=== PATIENT | female | born 1935 | race Caucasian/White ===

== ENCOUNTER 2016-07-23 08:43 | Emergency (ER) | END 2016-07-23 12:31 | disposition home or self-care (01) | CPT/HCPCS: 36415; 80053; 81003; 83690; 85025; 96360; 99283; 99284; A9270 ==

== ENCOUNTER 2016-10-17 08:30 | Outpatient (CLI) | payer MEDICARE, OTHER | END 2016-10-17 23:59 | disposition home or self-care (01) | DX: E03.9 Hypothyroidism, unspecified (principal) ==

== ENCOUNTER 2016-10-22 08:30 | Outpatient (CLI) | payer MEDICARE, OTHER | END 2016-10-22 23:59 | DX: E78.5 Hyperlipidemia, unspecified (principal); D64.9 Anemia, unspecified ==

== ENCOUNTER 2017-01-14 07:20 | Outpatient (CLI) | payer MEDICARE, OTHER | END 2017-01-14 07:21 | disposition home or self-care (01) | LOC: LAB.WCP 07:20 | PROVIDERS: ATTEND Physician Assistant Medical | DX: E03.9 Hypothyroidism, unspecified (principal) | CPT/HCPCS: 36415; 84443 ==

== ENCOUNTER 2017-03-27 08:57 | Outpatient (CLI) | payer MEDICARE, OTHER ==
--- NOTE | 2017-03-28 17:03 | Mammography Report ---
DIGITAL SCREENING MAMMOGRAM: 03/27/2017 CLINICAL INDICATION: An 82-year-old with history of benign biopsy for screening. COMPARISON: 01/2016, 11/2014, 09/2013, 03/2010. TECHNIQUE: Routine CC and MLO projections were obtained of the breasts. The breasts again demonstrate scattered fibroglandular densities bilaterally. Coarse and punctate, t ypically benign calcifications are present. Post-biopsy changes in the left breast are stable. No s uspicious masses, clustered microcalcifications, or regions of architectural distortion are identifie d. IMPRESSION: BENIGN FINDINGS. RECOMMENDATION: ROUTINE ANNUAL SCREENING UNLESS OTHERWISE CLINICALLY INDICATED. BIRADS CATEGORY: 2, BENIGN FINDINGS. STANDARD QUALIFYING STATEMENTS 1. This examination was reviewed with the aid of Computed-Aided Detection (CAD). 2. A negative or benign imaging report should not delay biopsy if clinically suspicious findings are present. Consider surgical consultation if warranted. More than 5% of cancers are not identified b y imaging. 3. Dense breasts may obscure an underlying neoplasm. JOB #: [id number] EXT JOB #:[id number]
== END 2017-03-27 08:58 | disposition home or self-care (01) ==
LOC: DI.N 08:57
PROVIDERS: ATTEND Physician Assistant Medical
DX: Z12.31 Encounter for screening mammogram for malignant neoplasm of breast (principal)
CPT/HCPCS: 77067

== ENCOUNTER 2017-03-29 10:36 | Outpatient (CLI) | payer MEDICARE, OTHER ==
--- NOTE | 2017-03-29 14:45 | DEXA Report ---
DEXA SCAN: 03/29/2017 CLINICAL INDICATION: Osteopenia. TECHNIQUE: Dual energy x-ray absorptiometry (DXA) was performed on a Exaprotect system. Regions measured are the AP spine, femoral neck, and, if needed, forearm. COMPARISON: 02/09/2016. In accordance with the International Society for Clinical Densitometry (ISCD) guidelines, data from previous exams may be reanalyzed using current recommendations and techniques. This is done to allow a more accurate basis for comparison with the current study. FINDINGS: The data for the lumbar spine is as follows: REGION BMD (g/cm/cm) T-SCORE Z-SCORE L1 0.811 -2.7 -0.8 L2 0.910 -2.4 -0.6 L3 1.010 -1.6 0.3 L4 1.146 -0.4 1.4 TOTAL 0.973 -1.7 0.1 NOTE: All evaluable vertebrae are used for classification. The data for the hip is as follows: REGION BMD (g/cm/cm) T-SCORE Z-SCORE Neck 0.805 -1.7 0.5 TOTAL 0.782 -1.8 0.2 NOTE: The femoral neck or total proximal femur, whichever is lowest, is used for classification. DXA RESULTS SUMMARY: Spine SCAN DATE AGE BMD T-SCORE BMD CHANGE VS BASELINE BMD CHANGE VS PREVIOUS 03/29/2017 82 1.017 --- 0.040 4.1 02/09/2016 81 0.977 --- --- --- * Denotes significant change at the 95% confidence level. Denotes dissimilar scan types or analysis methods. DXA RESULTS SUMMARY: Total hip SCAN DATE AGE BMD T-SCORE BMD CHANGE VS BASELINE BMD CHANGE VS PREVIOUS 03/29/2017 82 0.782 --- -0.032 -3.9 02/09/2016 81 0.814 * Denotes significant change at the 95% confidence level. Denotes dissimilar scan types or analysis methods. IMPRESSION: 1. THE WHO CLASSIFICATION BASED ON THE INTERNATIONAL REFERENCE STANDARD IS OSTEOPENIA. THE FRACTURE RISK IS INCREASED. 2. THERE HAS BEEN NO STATISTICALLY SIGNIFICANT INTERVAL CHANGE FROM 02/09/2016. RECOMMENDATION: Patients with diagnosis of osteoporosis or osteopenia should have regular bone mineral density assessment. For those eligible for Medicare, routine testing is allowed once every 2 years. Testing frequency can be increased for patients who have rapidly progressing disease or for those who are receiving medical therapy to restore bone mass. COMMENT: World Health Organization (WHO) definitions for osteoporosis and osteopenia: NORMAL BMD: T-score at -1.0 or higher, fracture risk is low. OSTEOPENIA BMD: T-score between -1.0 and -2.5, fracture risk is increased. OSTEOPOROSIS BMD: T-score at -2.5 or lower, fracture risk high. National Osteoporosis Foundation recommends: 1. Obtain adequate dietary calcium (at least 1200 mg per day) and vitamin D (400 -800 international units per day). 2. Participate, as appropriate, in regular weightbearing and muscle- strengthening exercise. 3. Avoid tobacco use and reduce alcohol and caffeine intake. 4. For more detailed information see the website at www.NOF.org. MTDD
== END 2017-03-29 10:37 | disposition home or self-care (01) ==
LOC: DI 10:36
PROVIDERS: ATTEND Physician Assistant Medical
DX: M85.89 Other specified disorders of bone density and structure, multiple sites (principal)
CPT/HCPCS: 77080

== ENCOUNTER 2017-10-21 23:23 | Outpatient (CLI) | payer MEDICARE, OTHER ==
[2017-10-21 12:32] LABS: BASOPHILS % (AUTO) 0.7 %; EOSINOPHILS # (AUTO) 0.3 10^3/uL (0.0-0.7); HGB - HEMOGLOBIN 11.8 g/dL (12.0-16.0); LYMPHOCYTES # (AUTO) 1.4 10^3/uL (1.5-3.5); LYMPHOCYTES % (AUTO) 22.4 %; MEAN CORPUSCULAR HEMOGLOBIN 30.2 pg (27.0-31.0); MEAN CORPUSCULAR HGB CONC 33.8 g/dL (32.0-36.0); MEAN CORPUSCULAR VOLUME 89.4 fL (81.0-99.0); MEAN PLATELET VOLUME 8.1 fL (7.9-10.8); MONOCYTES # (AUTO) 0.6 10^3/uL (0.0-1.0); MONOCYTES % (AUTO) 9.9 %; NEUTROPHILS # (AUTO) 3.8 10^3/uL (1.5-6.6); PLT - PLATELET COUNT 282 10^3/uL (130-450); RED BLOOD COUNT 3.92 10^6/uL (4.20-5.40); RED CELL DISTRIBUTION WIDTH 13.6 % (12.0-15.0); WHITE BLOOD COUNT 6.1 x10^3/uL (4.8-10.8)
[2017-10-21 12:51] LABS: BUN - BLOOD UREA NITROGEN 16 mg/dL (6-20); CARBON DIOXIDE - CO2 29 mmol/L (21-32); CHLORIDE 101 mmol/L (101-111); SODIUM 136 mmol/L (135-145)
[2017-10-21 12:52] LABS: ALBUMIN 4.1 g/dL (3.2-5.5); ALBUMIN/GLOBULIN RATIO 1.5 (1.0-2.2); ALKALINE PHOSPHATASE 57 IU/L (42-121); ALT ALANINE AMINOTRANSFERASE 17 IU/L (10-60); AST ASPARTATE AMINOTRANSFERASE 26 IU/L (10-42); BILIRUBIN,TOTAL 0.8 mg/dL (0.2-1.0); CALCIUM 9.1 mg/dL (8.5-10.3); CHOL/HDL RATIO 2.6 (<4.4); CHOLESTEROL 158 mg/dL; GFR - MDRD 53 (>89); GLUCOSE 92 mg/dL (70-100); HDL CHOLESTEROL 61 mg/dL; LDL CHOLESTEROL,CALCULATED 72 mg/dL; LDL/HDL RATIO 1.2 (<4.4); TOTAL PROTEIN 6.9 g/dL (6.7-8.2); VLDL CHOLESTEROL 25 mg/dL
[2017-10-21 12:58] LABS: THYROID STIMULATING HORMONE < 0.08 uIU/mL (0.34-5.60)
[2017-10-21 13:16] LABS: HB2 TOTAL 12.5 g/dL; HEMOGLOBIN A1C 0.44 g/dL; HEMOGLOBIN A1C % 5.4 % (4.6-6.2)
[2017-10-21 14:01] LABS: FREE T4 (FREE THYROXINE) 1.05 ng/dL (0.58-1.64)
== END 2017-10-21 23:24 | disposition home or self-care (01) ==
LOC: LAB.WCP 23:23
PROVIDERS: ATTEND Physician Assistant Medical
DX: I10 Essential (primary) hypertension (principal); R73.9 Hyperglycemia, unspecified; E78.5 Hyperlipidemia, unspecified; E03.9 Hypothyroidism, unspecified; K21.9 Gastro-esophageal reflux disease without esophagitis
CPT/HCPCS: 36415; 80053; 80061; 83036; 83721; 84439; 84443; 85025

== ENCOUNTER 2017-12-13 13:40 | Outpatient (CLI) | payer MEDICARE, OTHER ==
[2017-12-13 19:23] LABS: THYROID STIMULATING HORMONE 0.17 uIU/mL (0.34-5.60)
[2017-12-13 20:45] LABS: FREE T4 (FREE THYROXINE) 0.91 ng/dL (0.58-1.64)
== END 2017-12-13 13:41 | disposition home or self-care (01) ==
LOC: LAB.WCP 13:40
PROVIDERS: ATTEND Physician Assistant Medical
DX: E03.9 Hypothyroidism, unspecified (principal)
CPT/HCPCS: 36415; 84439; 84443

== ENCOUNTER 2018-02-01 12:53 | Outpatient (CLI) | payer MEDICARE, OTHER ==
--- NOTE | 2018-02-01 13:39 | CT Report ---
Procedure Date: 02/01/2018 Accession Number: [id number] / [id number] Procedure: CT - Head W/O CPT Code: FULL RESULT: EXAM: CT HEAD EXAM DATE: 02/01/2018 01:15 PM. CLINICAL HISTORY: ELDERLY FALL. COMPARISON: 11/13/2014. TECHNIQUE: Multiaxial CT images were obtained from the foramen magnum to the vertex. Reformats: Coronal. IV contrast: None. In accordance with CT protocol optimization, one or more of the following dose reduction techniques were utilized for this exam: automated exposure control, adjustment of mA and/or KV based on patient size, or use of iterative reconstructive technique. FINDINGS: Parenchyma: No intraparenchymal hemorrhage. No evidence of mass, midline shift, or CT findings of infarction. Solomon-white differentiation is distinct. Extraaxial Spaces: Normal for age. No subdural or epidural collections identified. Ventricles: Normal in size and position. Sinuses and Orbits: Imaged paranasal sinuses, orbits, and mastoids show no significant abnormality. Bones: No evidence of fracture or calvarial defect. Other: Mild frontal scalp soft tissue swelling. IMPRESSION: No acute intracranial abnormality. RADIA
--- NOTE | 2018-02-01 13:50 | CT Report ---
Procedure Date: 02/01/2018 Accession Number: [id number] / [id number] Procedure: CT - Orbits W/O CPT Code: FULL RESULT: EXAM: CT MAXILLOFACIAL WITHOUT CONTRAST EXAM DATE: 02/01/2018 01:15 PM. CLINICAL HISTORY: ELDERLY FALL. COMPARISONS: Accompanying CT study head, prior CT study head 11/13/2014. TECHNIQUE: Thin-section axial images were acquired of the face without contrast. Post-processing: Coronal and sagittal reformats. Other: None. In accordance with CT protocol optimization, one or more of the following dose reduction techniques were utilized for this exam: automated exposure control, adjustment of mA and/or KV based on patient size, or use of iterative reconstructive technique. Findings: Relevant images are indicated (image number, series number). Textiles Sales Representative AP, lateral view skull demonstrate no linear skull fracture. Mild anterior left ethmoidal sinus mucosal thickening. Mild outward bulging of the left nasal bone, but no discrete fracture line. Mild left maxillary sinus mucosal thickening. Remaining paranasal sinuses are clear. There is pneumatization of the anterior left clinoid process, a normal anatomical variant. Impressions: Some mild asymmetrical subcutaneous soft tissue thickening overlying the anterior left maxillary's sinus wall. Bilateral globes are symmetric with lenses intact. Patient status post bilateral lens surgery. Impressions: 1. Evidence for mild soft tissue injury overlying the left cheek, some mild outward bowing of the left nasal bone but no fracture. Orbital contents negative, otherwise no acute osseous findings. RADIA
== END 2018-02-01 12:54 | disposition home or self-care (01) ==
LOC: DI 12:53
PROVIDERS: ATTEND Physician Assistant
DX: R29.6 Repeated falls (principal)
CPT/HCPCS: 70450; 70480

== ENCOUNTER 2018-03-05 04:15 | Outpatient (CLI) | payer MEDICARE, OTHER | END 2018-03-05 04:16 | disposition critical access hospital (66) | LOC: EMS 04:15 | PROVIDERS: ATTEND Surgery | DX: R09.89 Other specified symptoms and signs involving the circulatory and respiratory systems (principal); R42 Dizziness and giddiness; R11.0 Nausea | CPT/HCPCS: A0425; A0429 ==

== ENCOUNTER 2018-03-05 04:33 | Emergency (ER) | payer MEDICARE, OTHER ==
--- NOTE | 2018-03-05 04:43 | ED Physician Documentation ---
History of Present Illness - Stated complaint Stated Complaint: COLD FEELING IN ARMS - Chief complaint Chief Complaint: Cardiac - History obtained from History obtained from: Patient - Additonal information Additional information: 83-year-old female presents to the emergency department with palpitations and general weakness. The patient awoke this morning with a racing heart and felt cold throughout her upper extremities and generally weak and nauseous. The patient denies any chest pain, dyspnea on exertion, shortness of breath or abdominal pain. The patient's symptoms have presently resolved spontaneously. No other associated symptoms. No specific triggering factors. The patient reports a history of atrial fibrillation. Review of Systems Constitutional: reports: Fatigue. denies: Fever, Chills Eyes: denies: Loss of vision Ears: denies: Loss of hearing Nose: denies: Congestion Throat: denies: Sore throat Cardiac: reports: Palpitations. denies: Chest pain / pressure Respiratory: denies: Dyspnea GI: denies: Abdominal Pain : denies: Dysuria Skin: denies: Rash Musculoskeletal: denies: Neck pain Neurologic: reports: Generalized weakness. denies: Syncope, Headache Immunocompromised: denies: Chemotherapy PD PAST MEDICAL HISTORY - Past Medical History Cardiovascular: High cholesterol, Atrial fibrillation, Hypertension Endocrine/Autoimmune: HyPOthyroidism : Kidney stones - Past Surgical History Past Surgical History: Yes General: Cholecystectomy, Appendectomy - Present Medications Home Medications: Ambulatory Orders Medication Instructions Recorded Confirmed Aspirin 81 DAILY 10/27/13 11/13/14 Atorvastatin Calcium [Lipitor] 40 DAILY 10/27/13 11/13/14 Flecainide [Tambocar] 100 mg PO Q12H 10/27/13 11/13/14 Levothyroxine Sodium [Levoxyl] 100 DAILY 10/27/13 11/13/14 Telmisartan/Hydrochlorothiazid 1 DAILY 10/27/13 11/13/14 [Micardis Hct 80-25 mg Tablet] amLODIPine [Norvasc] 5 mg PO ONCE 11/13/14 11/13/14 Omeprazole [PriLOSEC] 20 mg PO DAILY #14 capsule 03/13/15 ALPRAZolam [Alprazolam] 1 tab PO DAILY PRN 03/05/18 03/05/18 Sertraline HCl [Zoloft] 100 mg PO DAILY 03/05/18 03/05/18 - Allergies Allergies/Adverse Reactions: Allergies Allergy/AdvReac Type Severity Reaction Status Date / Time Penicillins Allergy Intermediate Rash Verified 03/05/18 04:46 - Social History Does the pt smoke?: No Smoking Status: Never smoker Does the pt drink ETOH?: Yes Does the pt have substance abuse?: No - Immunizations Immunizations are current?: No Immunizations: TDAP >10years/unknown - POLST Patient has POLST: No PD ED PE NORMAL - General General: Alert and oriented X 3, No acute distress - HEENT HEENT: Atraumatic, PERRL, EOMI, Ears normal - Neck Neck: Supple, no meningeal sign - Cardiac Cardiac: RRR, Strong equal pulses - Respiratory Respiratory: No respiratory distress, Clear bilaterally - Abdomen Abdomen: Soft, Non tender, Non distended - Derm Derm: Normal color - Extremities Extremities: No deformity, No edema - Neuro Neuro: Alert and oriented X 3, Normal speech - Psych Psych: Normal mood Results - Vitals Vitals: Vital Signs - 24 hr 03/05/18 03/05/18 03/05/18 04:35 05:23 05:48 Temperature 36.2 C L Heart Rate 77 72 71 Respiratory 18 16 20 Rate Blood Pressure 156/81 H 132/68 H 118/55 L Blood Pressure 135/56 H [Left] Blood Pressure 159/61 H [Right] O2 Saturation 96 94 96 Oxygen O2 Source Room air - EKG (time done) 04:27 Rate: Rate (enter#) Rhythm: NSR Intervals: Normal TN, QRS normal Ischemia: Non specific changes Compare to prior EKG: Unchanged from prior EKG - Labs Labs: Laboratory Tests 03/05/18 03/05/18 03/05/18 04:50 04:50 04:50 WBC 5.8 RBC 4.15 L Hgb 12.3 Hct 36.9 L MCV 88.9 MCH 29.7 MCHC 33.4 RDW 14.1 Plt Count 272 MPV 7.9 Neut # (Auto) 2.9 Lymph # (Auto) 1.9 [place] # (Auto) 0.6 Eos # (Auto) 0.4 Baso # (Auto) 0.0 Absolute Nucleated RBC 0.00 Nucleated RBC % 0.0 Sodium 136 Potassium 3.2 L Chloride 99 L Carbon Dioxide 27 Anion Gap 10.0 BUN 17 Creatinine 1.2 H Estimated GFR (MDRD) 43 L Glucose 111 H Calcium 9.4 Total Bilirubin 0.8 AST 34 ALT 21 Alkaline Phosphatase 71 Total Creatine Kinase 195 Troponin I < 0.04 Total Protein 7.0 Albumin 4.0 Globulin 3.0 Albumin/Globulin Ratio 1.3 Lipase 38 Urine Color Urine Clarity Urine pH Ur Specific [place] Urine Protein Urine Glucose (UA) Urine Ketones Urine Occult Blood Urine Nitrite Urine Bilirubin Urine Urobilinogen Ur Leukocyte Esterase Ur Microscopic Review Urine Culture Comments 03/05/18 04:56 WBC RBC Hgb Hct MCV MCH MCHC RDW Plt Count MPV Neut # (Auto) Lymph # (Auto) [place] # (Auto) Eos # (Auto) Baso # (Auto) Absolute Nucleated RBC Nucleated RBC % Sodium Potassium Chloride Carbon Dioxide Anion Gap BUN Creatinine Estimated GFR (MDRD) Glucose Calcium Total Bilirubin AST ALT Alkaline Phosphatase Total Creatine Kinase Troponin I Total Protein Albumin Globulin Albumin/Globulin Ratio Lipase Urine Color YELLOW Urine Clarity CLEAR Urine pH 6.0 Ur Specific [place] 1.025 Urine Protein NEGATIVE Urine Glucose (UA) NEGATIVE Urine Ketones NEGATIVE Urine Occult Blood TRACE-LYSE Urine Nitrite NEGATIVE Urine Bilirubin NEGATIVE Urine Urobilinogen 0.2 (NORMAL) Ur Leukocyte Esterase NEGATIVE Ur Microscopic Review NOT INDICATED Urine Culture Comments NOT INDICATED - Rads (name of study) CXR Radiology: Final report received PD MEDICAL DECISION MAKING - ED course ED course: The patient's workup does not reveal any significant abnormality that would necessitate admission to the hospital. The patient palpitations have resolved. The patient appears appropriate at this time for discharge home and ongoing outpatient management. 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 The patient agrees and understands. I discussed warning signs and recommended returning to the emergency department immediately for worsening or any concerns - Sepsis Event Vital Signs: Vital Signs - 24 hr 03/05/18 03/05/18 03/05/18 04:35 05:23 05:48 Temperature 36.2 C L Heart Rate 77 72 71 Respiratory 18 16 20 Rate Blood Pressure 156/81 H 132/68 H 118/55 L Blood Pressure 135/56 H [Left] Blood Pressure 159/61 H [Right] O2 Saturation 96 94 96 Oxygen O2 Source Room air Departure - Departure Disposition: 01 Home, Self Care Clinical Impression: Dizziness, Weakness, Hypokalemia Condition: Good Instructions: ED Palpitations
[2018-03-05 05:00] LABS: BASOPHILS % (AUTO) 0.7 %; EOSINOPHILS # (AUTO) 0.4 10^3/uL (0.0-0.7); EOSINOPHILS % (AUTO) 7.3 %; HGB - HEMOGLOBIN 12.3 g/dL (12.0-16.0); LYMPHOCYTES # (AUTO) 1.9 10^3/uL (1.5-3.5); LYMPHOCYTES % (AUTO) 32.8 %; MEAN CORPUSCULAR HEMOGLOBIN 29.7 pg (27.0-31.0); MEAN CORPUSCULAR HGB CONC 33.4 g/dL (32.0-36.0); MEAN CORPUSCULAR VOLUME 88.9 fL (81.0-99.0); MEAN PLATELET VOLUME 7.9 fL (7.9-10.8); MONOCYTES # (AUTO) 0.6 10^3/uL (0.0-1.0); MONOCYTES % (AUTO) 9.9 %; NEUTROPHILS # (AUTO) 2.9 10^3/uL (1.5-6.6); NEUTROPHILS % (AUTO) 49.3 %; PLT - PLATELET COUNT 272 10^3/uL (130-450); RED BLOOD COUNT 4.15 10^6/uL (4.20-5.40); RED CELL DISTRIBUTION WIDTH 14.1 % (12.0-15.0); WHITE BLOOD COUNT 5.8 x10^3/uL (4.8-10.8)
[2018-03-05 05:07] LABS: BILIRUBIN,URINE NEGATIVE (NEGATIVE); GLUCOSE, URINE (UA) NEGATIVE (NEGATIVE); KETONES,URINE (UA) NEGATIVE (NEGATIVE); LEUKOCYTE ESTERASE, URINE NEGATIVE (NEGATIVE); NITRITE,URINE NEGATIVE (NEGATIVE); OCCULT BLOOD,URINE TRACE-LYSE (NEGATIVE); PROTEIN,URINE NEGATIVE (NEGATIVE); UROBILINOGEN,URINE 0.2 (NORMAL) E.U./dL (NORMAL)
[2018-03-05 05:15] LABS: ALBUMIN/GLOBULIN RATIO 1.3 (1.0-2.2); BILIRUBIN,TOTAL 0.8 mg/dL (0.2-1.0); CALCIUM 9.4 mg/dL (8.5-10.3); CREATININE 1.2 mg/dL (0.4-1.0)
[2018-03-05 05:16] LABS: CLARITY,URINE CLEAR (CLEAR)
--- NOTE | 2018-03-05 05:18 | XRAY Report ---
Procedure Date: 03/05/2018 Accession Number: [id number] / [id number] Procedure: XR - Chest 2 View X-Ray CPT Code: 15358 FULL RESULT: EXAM: CHEST RADIOGRAPHY EXAM DATE: 03/05/2018 05:07 AM. CLINICAL HISTORY: Palpitations. COMPARISON: CHEST 2 VIEW PA/LAT 01/25/2014. TECHNIQUE: 2 views. FINDINGS: Lungs/Pleura: No focal opacities evident. No pleural effusion. No pneumothorax. Normal volumes. Mediastinum: No cardiomegaly. Stable hiatal hernia. Atherosclerotic calcifications of the aortic arch. Other: None. IMPRESSION: Stable hiatal hernia. No evidence of acute cardiopulmonary disease. RADIA
[2018-03-05] MEDS ORDERED: POTASSIUM CHLORIDE 20 MEQ TABLET PO STA (05:45)
[2018-03-05 05:49] VITALS: BP 118/55
== END 2018-03-05 06:05 | disposition home or self-care (01) ==
LOC: EDBD → EDUNIT# → ED 04:33 → SUPCPDRO 04:33 → ED 06:05
DX: R42 Dizziness and giddiness (principal); R53.1 Weakness; E87.6 Hypokalemia; I48.91 Unspecified atrial fibrillation; I10 Essential (primary) hypertension
CPT/HCPCS: 36415; 71046; 80053; 81003; 82550; 83690; 84484; 85025; 93005; 99284; A9270; 81001; 87086

== ENCOUNTER 2018-03-11 15:35 | Outpatient (CLI) | payer MEDICARE, OTHER ==
[2018-03-11 19:01] LABS: CALCIUM 9.2 mg/dL (8.5-10.3); CREATININE 1.1 mg/dL (0.4-1.0)
== END 2018-03-11 15:36 | disposition home or self-care (01) ==
LOC: LAB.WCP 15:35
PROVIDERS: ATTEND Physician Assistant Medical
DX: I48.0 Paroxysmal atrial fibrillation (principal)
CPT/HCPCS: 36415; 80048

== ENCOUNTER 2018-03-21 10:35 | Outpatient (CLI) | payer MEDICARE, OTHER ==
[2018-03-21] MEDS ORDERED: GADOBUTROL 7.5 MMOL/7.5 ML VIAL ONE (12:15)
[2018-03-21] MEDS ORDERED: GADOBUTROL 7.5 MMOL/7.5 ML VIAL IVP ONE ×2 (12:34)
--- NOTE | 2018-03-21 13:01 | Ultrasound Report ---
Reason: ATRIAL FIBRILATION, PAROXYSMAL, MUSCEL WEAKNESS Procedure Date: 03/21/2018 Accession Number: [id number] / [id number] Procedure: US - Carotid Doppler Complete CPT Code: FULL RESULT: EXAM: BILATERAL CAROTID AND VERTEBRAL ARTERY DUPLEX DOPPLER ULTRASOUND: EXAM DATE: 03/21/2018 11:14 AM CLINICAL HISTORY: Atrial fibrillation, paroxysmal, muscle weakness. COMPARISON: 03/21/2018 11:24 AM. TECHNIQUE: Grayscale imaging, color Doppler, and duplex spectral Doppler were used to evaluate the carotid and vertebral arteries bilaterally. Static images were obtained. FINDINGS: No significant plaque is identified in the right or left common or internal carotid arteries. Normal antegrade flow is present in bilateral vertebral arteries. VELOCITIES (cm/sec): VELOCITIES: Right CCA mid: PSV 92 cm/sec CCA dist: PSV 80 cm/sec ICA prox: PSV 67 cm/sec, EDV 16 cm/sec ICA mid: PSV 103 cm/sec, EDV 25 cm/sec ICA dist: PSV 104 cm/sec, EDV 35 cm/sec ECA: PSV 145 cm/sec Vert: PSV 38 cm/sec ICA/CCA: 1.30 Left CCA mid: PSV 74 cm/sec CCA dist: PSV 69 cm/sec ICA prox: PSV 69 cm/sec, EDV 23 cm/sec ICA mid: PSV 85 cm/sec, EDV 28 cm/sec ICA dist: PSV 98 cm/sec, EDV 35 cm/sec ECA: PSV 75 cm/sec Vert: PSV 37 cm/sec ICA/CCA: 1.42 ICA diameter stenosis: Right: <50% by velocity and <70% by NASCET criteria. Left: <50% by velocity and <70% by NASCET criteria. IMPRESSION: 1. No significant bilateral carotid artery plaquing. 2. In the right carotid artery there are no elevated carotid artery velocities to suggest hemodynamically significant stenosis. 3. In the left carotid artery there are no elevated carotid artery velocities to suggest hemodynamically significant stenosis. 4. Normal antegrade flow is present in bilateral vertebral arteries. General Recommendations: Stenosis =50% ICA - Follow-up ultrasound 6-12 months Stenosis <50% ICA - High Risk Patient with plaque - Follow-up ultrasound 1-2 years Normal Study but High Risk Patient - Follow-up ultrasound 3-5 years Management recommendations and diagnostic criteria are based on current IAC endorsed standards in Carotid Artery Stenosis: Grayscale and Doppler Ultrasound Diagnosis. Validated velocity measurements with angiographic measurements and velocity criteria are extrapolated from diameter data as defined by the Society of Radiologists in Ultrasound Consensus Conference Radiology 2003; 229;340-346. RADIA
--- NOTE | 2018-03-23 16:30 | MRI Report ---
Reason: ATRIAL FIBRILLATION,PAROXYSMAL, MUSCLE WEAKNESS Procedure Date: 03/21/2018 Accession Number: [id number] / [id number] Procedure: MRI - Brain W/WO CPT Code: FULL RESULT: EXAM: MRI BRAIN WITH AND WITHOUT CONTRAST. COMPARISON: CT head, 02/01/2018. CLINICAL HISTORY: Atrial fibrillation, paroxysmal, muscle weakness. TECHNIQUE: Multiplanar multisequence imaging is performed through the head with and without gadolinium based contrast 6.5 cc Gadavist. FINDINGS: Diffusion weighted imaging shows no acute infarct. Gradient sequence shows no evident prior parenchymal hemorrhage. T2 FLAIR imaging shows a few small scattered foci of elevated signal, appearance and distribution is nonspecific. T2 spin-echo imaging shows no posterior fossa masses. No calvarial signal abnormality. Visualized orbits, paranasal sinuses and mastoids are unremarkable. Pituitary fossa, clivus and foramen magnum are unremarkable. No abnormal elevated T1 signal in the brain parenchyma. Postcontrast T1 imaging shows no abnormal parenchymal enhancement. No masses. IMPRESSION: No acute infarct, masses, or other discrete acute intracranial process identified. There are findings concordant with volume loss, and at least mild small vessel angiopathy.
== END 2018-03-21 10:36 | disposition home or self-care (01) ==
LOC: DI 10:35
PROVIDERS: ATTEND Physician Assistant Medical
DX: I48.0 Paroxysmal atrial fibrillation (principal); M62.81 Muscle weakness (generalized)
CPT/HCPCS: 70553; 93306; 93880; A9585

== ENCOUNTER 2018-06-05 07:31 | Outpatient (CLI) | payer MEDICARE, OTHER ==
[2018-06-05 14:16] LABS: ALBUMIN 4.3 g/dL (3.2-5.5); ALBUMIN/GLOBULIN RATIO 1.5 (1.0-2.2); ALKALINE PHOSPHATASE 96 IU/L (42-121); ALT ALANINE AMINOTRANSFERASE 19 IU/L (10-60); AST ASPARTATE AMINOTRANSFERASE 27 IU/L (10-42); BILIRUBIN,TOTAL 0.8 mg/dL (0.2-1.0); BUN - BLOOD UREA NITROGEN 24 mg/dL (6-20); CALCIUM 9.5 mg/dL (8.5-10.3); CARBON DIOXIDE - CO2 29 mmol/L (21-32); CHLORIDE 98 mmol/L (101-111); CHOL/HDL RATIO 3.2 (<4.4); CHOLESTEROL 177 mg/dL; GFR - MDRD 53 (>89); GLUCOSE 99 mg/dL (70-100); HDL CHOLESTEROL 56 mg/dL; LDL CHOLESTEROL,CALCULATED 94 mg/dL; LDL/HDL RATIO 1.7 (<4.4); SODIUM 136 mmol/L (135-145); TOTAL PROTEIN 7.2 g/dL (6.7-8.2); VLDL CHOLESTEROL 27 mg/dL
== END 2018-06-05 07:32 ==
LOC: LAB.WCP 07:31
PROVIDERS: ATTEND Physician Assistant Medical
DX: E78.5 Hyperlipidemia, unspecified (principal)
CPT/HCPCS: 36415; 80053; 80061; 83721

== ENCOUNTER 2019-01-29 08:00 | Outpatient (CLI) | payer MEDICARE, OTHER ==
[2019-01-29 13:12] LABS: CALCIUM 9.6 mg/dL (8.5-10.3)
== END 2019-01-29 23:59 | disposition home or self-care (01) ==
LOC: LAB.WCP 08:00
PROVIDERS: ATTEND Physician Assistant Medical
DX: E87.6 Hypokalemia (principal); E55.9 Vitamin D deficiency, unspecified
CPT/HCPCS: 36415; 80048; 82306

== ENCOUNTER 2019-05-29 06:52 | Emergency (ER) | payer MEDICARE, OTHER ==
--- NOTE | 2019-05-29 07:15 | ED Physician Documentation ---
PD HPI FEMALE - Stated complaint Stated Complaint: FEMALE - History obtained from History obtained from: Patient - History of Present Illness Timing - onset: Yesterday Timing - duration: Hours (9) Timing - details: Abrupt onset Pain level max: 0 Associated symptoms: Urinary frequency, Hematuria. No: Fever, Abdominal pain, Back pain, Pelvic pain Recently seen: Not recently seen - Additional information Additional information: This is an 84-year-old woman who presents with her complaints at about 1030 last night she started going to the bathroom more frequently there is just a little bit of "stinging" during the urination and she feels a lot of vaginal pressure. This morning she peed and it was bright red blood. She denies back pain although she feels a little bit shaky she has not documented any fevers. She felt a little queasy and nauseous on the ride here from home but has not vomited. She does have a history of urinary tract infections including ones that have presented with blood in the urine. Her last UTI was about 2 years ago. She does not have a urologist. She has a history of high blood pressure and A. fib they have just changed her to diltiazem from flecainide because they were concerned it was causing her some hives. She has high cholesterol and is hypothyroid on thyroid replacement. Review of Systems Constitutional: reports: Chills. denies: Fever GI: reports: Nausea. denies: Abdominal Pain, Vomiting : reports: Dysuria, Frequency, Hematuria Musculoskeletal: denies: Back pain PD PAST MEDICAL HISTORY - Past Medical History Cardiovascular: High cholesterol, Atrial fibrillation, Hypertension Endocrine/Autoimmune: HyPOthyroidism : Kidney stones Psych: Depression, Anxiety - Past Surgical History Past Surgical History: Yes General: Cholecystectomy, Appendectomy - Present Medications Home Medications: Ambulatory Orders Medication Instructions Recorded Confirmed Aspirin 81 DAILY 10/27/13 11/13/14 Atorvastatin Calcium [Lipitor] 40 DAILY 10/27/13 11/13/14 Levothyroxine Sodium [Levoxyl] 100 DAILY 10/27/13 11/13/14 Telmisartan/Hydrochlorothiazid 1 DAILY 10/27/13 11/13/14 [Micardis Hct 80-25 mg Tablet] ALPRAZolam [Alprazolam] 1 tab PO PRN PRN 03/05/18 03/05/18 Sertraline HCl [Zoloft] 100 mg PO DAILY 03/05/18 03/05/18 Cholecalciferol (Vitamin D3) 1,000 unit PO 05/29/19 [Vitamin D3] Diltiazem HCl [Diltiazem ER] 180 mg PO 05/29/19 Phenazopyridine HCl [Pyridium] 100 mg PO TID #6 tablet 05/29/19 Potassium Chloride 10 meq PO 05/29/19 Sulfamethox/Trimeth 800/160 1 each PO BID #20 tablet 05/29/19 [Bactrim Ds 800/160] - Allergies Allergies/Adverse Reactions: Allergies Allergy/AdvReac Type Severity Reaction Status Date / Time Penicillins Allergy Intermediate Rash Verified 03/05/18 04:46 - Social History Does the pt smoke?: No Smoking Status: Never smoker Does the pt drink ETOH?: Yes Does the pt have substance abuse?: No - Immunizations Immunizations are current?: No Immunizations: TDAP >10years/unknown - POLST Patient has POLST: No PD ED PE NORMAL - Vitals Vital signs reviewed: Yes - General General: Alert and oriented X 3, No acute distress, Well developed/nourished - HEENT HEENT: Atraumatic, PERRL, Moist mucous membranes - Cardiac Cardiac: RRR, Strong equal pulses. No: No murmur (There is a soft 1/6 systolic murmur heard at the left and right upper sternal border) - Respiratory Respiratory: No respiratory distress, Clear bilaterally - Abdomen Abdomen: Normal bowel sounds, Soft, Non tender, Non distended, No organomegaly - Back Back: No CVA TTP - Derm Derm: Normal color, Warm and dry, No rash - Extremities Extremities: No edema - Neuro Neuro: Alert and oriented X 3, No motor deficit, No sensory deficit, Normal speech - Psych Psych: Normal mood, Normal affect Results - Vitals Vitals: Vital Signs - 24 hr 05/29/19 05/29/19 06:58 07:00 Temperature 36.8 C Heart Rate 90 71 Respiratory 18 16 Rate Blood Pressure 159/61 H 143/64 H O2 Saturation 97 99 Oxygen O2 Source Room air - Labs Labs: Laboratory Tests 05/29/19 06:55 Urine Color RED/BLOODY Urine Clarity CLOUDY Urine pH 7.0 Ur Specific [place] 1.025 Urine Protein IRONWORKER Urine Glucose (UA) NEGATIVE Urine Ketones NEGATIVE Urine Occult Blood LARGE H Urine Nitrite IRONWORKER Urine Bilirubin NEGATIVE Urine Urobilinogen 1 (NORMAL) Ur Leukocyte Esterase IRONWORKER Urine RBC TNTC H Urine WBC 6-10 H Ur Squamous Epith Cells RARE Squamous Urine Bacteria Moderate H Ur Microscopic Review INDICATED Urine Culture Comments INDICATED PD MEDICAL DECISION MAKING - ED course Complexity details: reviewed results, d/w patient, d/w family ED course: Patient does have a urinary tract infection with hematuria. The urine has been cultured. Started her on Bactrim and only 3 days of Pyridium are provided. She is instructed to decrease her potassium supplementation while taking the Bactrim. She was curious about cranberry juice which I think is fine to drink during this time. High-dose vitamin C may also help eliminate the bacteria. Recheck the urine with her primary care provider and follow-up if worsening Departure - Departure Disposition: Home, Self Care Clinical Impression: UTI (urinary tract infection) Qualifiers: Urinary tract infection type: acute cystitis Hematuria presence: with hematuria Qualified Code(s): N30.01 - Acute cystitis with hematuria Condition: Good Instructions: ED UTI Cystitis Female Follow-Up: Sweta Berrios PA-C [Primary Care Provider] - Prescriptions: Phenazopyridine HCl [Pyridium] 100 mg PO TID #6 tablet Sulfamethox/Trimeth 800/160 [Bactrim Ds 800/160] 1 each PO BID #20 tablet Comments: Take the Bactrim twice a day as prescribed for 10 days. May take the Pyridium if you are having a lot of discomfort but only use it as needed up to 3 times a day. It will turn your urine very bright orange. Drink lots of water at least ten 8 ounce glasses of water a day to keep the kidneys flushed through. Bactrim can elevate your potassium levels so I would recommend taking your potassium supplement only every other day while taking the antibiotic. Cranberry juice is fine to drink. High-dose vitamin C 500 mg 3 times a day can also help to acidify the urine and clear the infection. Do not take this if it upsets your stomach. Follow-up with your primary care provider to retest the urine after he finished the antibiotics or sooner if you have increasing pain, develop back pain or fever, or vomiting and cannot keep anything down or other problems arise.
[2019-05-29 07:26] LABS: CLARITY,URINE CLOUDY (CLEAR); GLUCOSE, URINE (UA) NEGATIVE (NEGATIVE); KETONES,URINE (UA) NEGATIVE (NEGATIVE); OCCULT BLOOD,URINE LARGE (NEGATIVE); UROBILINOGEN,URINE 1 (NORMAL) E.U./dL (NORMAL)
[2019-05-29 07:28] LABS: BILIRUBIN,URINE NEGATIVE (NEGATIVE); ICTOTEST,URINE NEGATIVE
[2019-05-29 07:31] VITALS: BP 143/64
[2019-05-29 07:36] LABS: RBC,URINE TNTC /HPF (0-5); SQUAMOUS EPITHELIAL CELL,UR RARE Squamous (<= Few)
[2019-05-29 07:37] LABS: BACTERIA,URINE Moderate /HPF (None Seen)
[2019-05-29] MEDS ORDERED: SULFAMETH/TRIMETH DS 800/160 MG TABLET PO STA (07:56)
[2019-05-29] MEDS ORDERED: PHENAZOPYRIDINE 100 MG TABLET PO STA (07:57)
== END 2019-05-29 08:19 | disposition home or self-care (01) ==
LOC: ED 06:52
DX: N30.01 Acute cystitis with hematuria (principal); R01.1 Cardiac murmur, unspecified; I48.91 Unspecified atrial fibrillation; I10 Essential (primary) hypertension; E78.00 Pure hypercholesterolemia, unspecified; E03.9 Hypothyroidism, unspecified; Z79.82 Long term (current) use of aspirin; Z88.0 Allergy status to penicillin
CPT/HCPCS: 81001; 87086; 87181; 99283; 99284; A9270; 81003

== ENCOUNTER 2019-06-09 06:20 | Outpatient (CLI) | payer MEDICARE, OTHER | END 2019-06-09 06:21 | disposition critical access hospital (66) | LOC: EMS 06:20 | PROVIDERS: ATTEND Surgery | DX: R53.1 Weakness (principal); R11.0 Nausea | CPT/HCPCS: A0425; A0429 ==

== ENCOUNTER 2019-06-09 06:42 | Emergency (ER) | payer MEDICARE, OTHER ==
--- NOTE | 2019-06-09 07:08 | ED Physician Documentation ---
PD HPI ABD PAIN - Stated complaint Stated Complaint: DIZZY - Chief complaint Chief Complaint: Abd Pain - History obtained from History obtained from: Patient - History of Present Illness Timing - onset: How many hours ago (2-3), Today Timing - duration: Minutes Timing - details: Abrupt onset (She had onset this morning of feeling of nausea without vomiting. She did feel some discomfort in her mid upper abdomen. Over several minutes she noted a feeling of sweatiness and did have some lightheadedness with it. She denied any syncope per se. She went in sat down and rested and felt improved. Still with some upper abdominal crampy pain. She is able to stand up at that point and did not feel lightheaded anymore. The abdominal pain improved as well over several minutes. She denied any chest pain or dyspnea.). No: Still present Quality: Cramping, Aching Location: Epigastric. No: RUQ Radiation: No: Lower back, Upper back Improved by: Other (felt better sitting down and rested few minutes) Worsened by: No: Eating Associated symptoms: Near syncope / syncope. No: Fever, Nausea, Diarrhea, Constipation, Melena, Chest pain, Loss of appetite Recently seen: Clinic (She was seen last week by her primary care due to continued depression symptoms. She had her Zoloft increased from 1 to 1-1/2 tablets daily. She has been doing that for about 4 or 5 days now.), Emergency Dept (11 or 12 days ago seen in the ER for dysuria and prescribed Bactrim for 10 days. Her dysuria improved over a few days and she completed the antibiotic course 2 days ago without problems. She felt okay during that time.), Other (She was last seen by her diesel mechanic about 3 months ago and had her antiarrhythmic changed from flecainide to something else and has been doing okay with that. She has not had episodes of A. fib recently.) Review of Systems Constitutional: denies: Fever, Chills, Myalgias Throat: denies: Sore throat Cardiac: denies: Chest pain / pressure, Palpitations, Pedal edema, Calf pain Respiratory: denies: Dyspnea, Cough GI: reports: Abdominal Pain, Nausea. denies: Vomiting, Constipation, Diarrhea, Bloody / black stool : denies: Dysuria, Frequency Neurologic: reports: Near syncope. denies: Focal weakness, Numbness, Syncope, Altered mental status PD PAST MEDICAL HISTORY - Past Medical History Cardiovascular: High cholesterol, Atrial fibrillation, Hypertension Endocrine/Autoimmune: HyPOthyroidism : Kidney stones Psych: Depression, Anxiety - Past Surgical History Past Surgical History: Yes General: Cholecystectomy, Appendectomy - Present Medications Home Medications: Ambulatory Orders Medication Instructions Recorded Confirmed Aspirin 81 DAILY 10/27/13 11/13/14 Atorvastatin Calcium [Lipitor] 40 DAILY 10/27/13 11/13/14 Levothyroxine Sodium [Levoxyl] 100 DAILY 10/27/13 11/13/14 Telmisartan/Hydrochlorothiazid 1 DAILY 10/27/13 11/13/14 [Micardis Hct 80-25 mg Tablet] ALPRAZolam [Alprazolam] 1 tab PO PRN PRN 03/05/18 03/05/18 Sertraline HCl [Zoloft] 100 mg PO DAILY 03/05/18 03/05/18 Cholecalciferol (Vitamin D3) 1,000 unit PO 05/29/19 [Vitamin D3] Diltiazem HCl [Diltiazem ER] 180 mg PO 05/29/19 Phenazopyridine HCl [Pyridium] 100 mg PO TID #6 tablet 05/29/19 Potassium Chloride 10 meq PO 05/29/19 Sulfamethox/Trimeth 800/160 1 each PO BID #20 tablet 05/29/19 [Bactrim Ds 800/160] - Allergies Allergies/Adverse Reactions: Allergies Allergy/AdvReac Type Severity Reaction Status Date / Time Penicillins Allergy Intermediate Rash Verified 03/05/18 04:46 - Social History Does the pt smoke?: No Smoking Status: Never smoker Does the pt drink ETOH?: Yes Does the pt have substance abuse?: No - Immunizations Immunizations are current?: No Immunizations: TDAP >10years/unknown - POLST Patient has POLST: No PD ED PE NORMAL - Vitals Vital signs reviewed: Yes - General General: Alert and oriented X 3, No acute distress, Well developed/nourished - HEENT HEENT: Moist mucous membranes, Pharynx benign - Neck Neck: Supple, no meningeal sign, No adenopathy - Cardiac Cardiac: RRR, No murmur - Respiratory Respiratory: Clear bilaterally - Abdomen Abdomen: Normal bowel sounds, Soft, Non tender, Non distended, No organomegaly - Female Female : Deferred - Rectal Rectal: Deferred - Back Back: No CVA TTP - Derm Derm: Normal color, Warm and dry - Extremities Extremities: No tenderness to palpate, Normal ROM s pain, No edema, No calf tenderness / cord - Neuro Neuro: Alert and oriented X 3, No motor deficit, No sensory deficit, Normal speech Eye Opening: Spontaneous Motor: Obeys Commands Verbal: Oriented GCS Score: 15 - Psych Psych: Normal mood Results - Vitals Vitals: Vital Signs - 24 hr 06/09/19 06/09/19 06/09/19 06:44 07:38 09:36 Temperature 36.6 C Heart Rate 66 72 Heart Rate [ 69 Sitting] Heart Rate [ 76 Standing] Heart Rate [ 67 Supine] Respiratory 15 18 Rate Blood Pressure 128/56 L 107/79 Blood Pressure 124/60 [Sitting] Blood Pressure 101/58 L [Standing] Blood Pressure 122/63 [Supine] O2 Saturation 96 96 Oxygen O2 Source Room air - Labs Labs: Laboratory Tests 06/09/19 06/09/19 06/09/19 07:00 07:00 07:00 WBC 5.7 RBC 4.03 L Hgb 11.9 L Hct 36.7 L MCV 91.1 MCH 29.5 MCHC 32.4 RDW 12.7 Plt Count 313 MPV 9.6 Neut # (Auto) 3.0 Lymph # (Auto) 1.8 Upson # (Auto) 0.6 Eos # (Auto) 0.2 Baso # (Auto) 0.0 Absolute Nucleated RBC 0.00 Nucleated RBC % 0.0 Sodium 131 L Potassium 3.6 Chloride 95 L Carbon Dioxide 27 Anion Gap 9.0 BUN 20 Creatinine 1.2 H Estimated GFR (MDRD) 43 L Glucose 134 H Calcium 9.5 Total Bilirubin Direct Bilirubin AST ALT Alkaline Phosphatase Troponin I High Sens < 2.3 L Total Protein Albumin Globulin 06/09/19 07:00 WBC RBC Hgb Hct MCV MCH MCHC RDW Plt Count MPV Neut # (Auto) Lymph # (Auto) Upson # (Auto) Eos # (Auto) Baso # (Auto) Absolute Nucleated RBC Nucleated RBC % Sodium Potassium Chloride Carbon Dioxide Anion Gap BUN Creatinine Estimated GFR (MDRD) Glucose Calcium Total Bilirubin 0.7 Direct Bilirubin 0.1 AST 28 ALT 19 Alkaline Phosphatase 72 Troponin I High Sens Total Protein 7.4 Albumin 4.4 Globulin 3.0 PD MEDICAL DECISION MAKING - ED course Complexity details: reviewed results, re-evaluated patient (She states she is feeling better here. We did do orthostatics which showed a drop in her blood pressure but she did not have any near-syncope symptoms again. I do not have a obvious explanation for this right now. Recent medications were an antibiotic that she is finished now. She does not look septic. She is not had any melena nor bloody stools. Her antiarrhythmic medicine was changed about 3 months ago so I would not anticipate a problem now unless her recent antibiotic of the Bactrim had caused decreased clearance of it. Her EKG appears normal however without any blocks or conduction abnormalities. She has not had a change in her blood pressure medicine. She had changed her antidepressants but looking in the pucker tease, lightheadedness her blood pressure changes is not listed as a common side effect. At this point I would have her hold her blood pressure medicine for couple of days and check her pressure. See if she returns to normal. Watch for other symptoms to develop.), considered differential (Consider cardiovascular causes. She had nausea with upper abdominal pain. Her lightheadedness may have been vasovagal. Will check blood pressure and heart rate. Will check blood tests EKG and troponin.), d/w patient Departure - Departure Disposition: 01 Home, Self Care Clinical Impression: Orthostatic lightheadedness, Near syncope Condition: Stable Record reviewed to determine appropriate education?: Yes Instructions: ED Near Syncope Unkn Comments: Hold your blood pressure medicine this morning. See how your blood pressure is tomorrow and the next day and if it is relatively low, then hold your blood pressure medicine still. Stay well hydrated. This might be a side effect of the increased dose of your Zoloft, though not one listed as common/usual side effect. That should improve after a few days to a week of being on it. Your blood tests otherwise are good without any signs of being heart related and your electrolytes and kidney function are good. Follow-up with your primary care if he has not gotten back to normal feeling and blood pressure over the next few days.
[2019-06-09 07:24] LABS: BASOPHILS % (AUTO) 0.7 %; EOSINOPHILS # (AUTO) 0.2 10^3/uL (0.0-0.7); EOSINOPHILS % (AUTO) 3.2 %; HGB - HEMOGLOBIN 11.9 g/dL (12.0-16.0); LYMPHOCYTES # (AUTO) 1.8 10^3/uL (1.5-3.5); LYMPHOCYTES % (AUTO) 31.6 %; MEAN CORPUSCULAR HEMOGLOBIN 29.5 pg (27.0-31.0); MEAN CORPUSCULAR HGB CONC 32.4 g/dL (32.0-36.0); MEAN CORPUSCULAR VOLUME 91.1 fL (81.0-99.0); MEAN PLATELET VOLUME 9.6 fL (7.9-10.8); MONOCYTES # (AUTO) 0.6 10^3/uL (0.0-1.0); MONOCYTES % (AUTO) 10.4 %; PLT - PLATELET COUNT 313 10^3/uL (130-450); RED BLOOD COUNT 4.03 10^6/uL (4.20-5.40); RED CELL DISTRIBUTION WIDTH 12.7 % (12.0-15.0); WHITE BLOOD COUNT 5.7 x10^3/uL (4.8-10.8)
[2019-06-09 07:25] LABS: CALCIUM 9.5 mg/dL (8.5-10.3); CREATININE 1.2 mg/dL (0.4-1.0)
--- NOTE | 2019-06-09 07:37 | XRAY Report ---
Reason: dizzy, weak Procedure Date: 06/09/2019 Accession Number: [id number] / [id number] Procedure: XR - Chest 1 View X-Ray CPT Code: 39644 Final Report FULL RESULT: EXAM: CHEST RADIOGRAPHY EXAM DATE: 06/09/2019 06:56 AM. CLINICAL HISTORY: Dizzy, weak. COMPARISON: CHEST 2 VIEW 03/05/2018 4:40 AM CHEST 2 VIEW PA/LAT 01/25/2014 2:04 AM. TECHNIQUE: 1 view. FINDINGS: Lungs/Pleura: No focal opacities evident. No pleural effusion. No pneumothorax. Mediastinum: Within exam limitations, the cardiac contour is normal. There is mild atherosclerotic calcification of the aortic arch. A large hiatal hernia is present, similar to prior chest radiographs. Other: No acute osseous abnormality. There are degenerative changes of the right glenohumeral joint. IMPRESSION: 1. Stable appearance of large hiatal hernia. 2. No acute cardiopulmonary abnormality. RADIA
[2019-06-09 07:53] LABS: ALBUMIN 4.4 g/dL (3.2-5.5); BILIRUBIN,DIRECT 0.1 mg/dL (0.1-0.5); BILIRUBIN,TOTAL 0.7 mg/dL (0.2-1.0); TOTAL PROTEIN 7.4 g/dL (6.7-8.2)
[2019-06-09] MEDS ORDERED: SODIUM CHLORIDE 0.9% 1,000 ML IV ONE (09:53)
[2019-06-09 11:25] VITALS: BP 121/50
== END 2019-06-09 11:30 | disposition home or self-care (01) ==
LOC: EDUNIT# → ED 06:42
DX: I95.1 Orthostatic hypotension (principal); R10.13 Epigastric pain; R11.0 Nausea; I10 Essential (primary) hypertension; Z79.82 Long term (current) use of aspirin
CPT/HCPCS: 36415; 71045; 80048; 80076; 84484; 85025; 93005; 99283; 99284

== ENCOUNTER 2021-01-16 08:00 | Outpatient (CLI) | payer MEDICARE, OTHER ==
[2021-01-16 13:23] LABS: BASOPHILS % (AUTO) 0.3 %; EOSINOPHILS # (AUTO) 0.4 10^3/uL (0.0-0.7); EOSINOPHILS % (AUTO) 5.9 %; HCT - HEMATOCRIT 38.5 % (37.0-47.0); HGB - HEMOGLOBIN 11.9 g/dL (12.0-16.0); LYMPHOCYTES # (AUTO) 1.5 10^3/uL (1.5-3.5); LYMPHOCYTES % (AUTO) 19.7 %; MEAN CORPUSCULAR HEMOGLOBIN 28.8 pg (27.0-31.0); MEAN CORPUSCULAR HGB CONC 30.9 g/dL (32.0-36.0); MEAN CORPUSCULAR VOLUME 93.2 fL (81.0-99.0); MEAN PLATELET VOLUME 11.1 fL (7.9-10.8); MONOCYTES # (AUTO) 0.5 10^3/uL (0.0-1.0); MONOCYTES % (AUTO) 6.7 %; NEUTROPHILS % (AUTO) 67.1 %; PLT - PLATELET COUNT 231 10^3/uL (130-450); RED BLOOD COUNT 4.13 10^6/uL (4.20-5.40); RED CELL DISTRIBUTION WIDTH 13.6 % (12.0-15.0); WHITE BLOOD COUNT 7.5 x10^3/uL (4.8-10.8)
[2021-01-16 13:54] LABS: ALBUMIN 4.3 g/dL (3.2-5.5); ALBUMIN/GLOBULIN RATIO 1.4 (1.0-2.2); ALKALINE PHOSPHATASE 74 IU/L (42-121); ALT ALANINE AMINOTRANSFERASE 18 IU/L (10-60); AST ASPARTATE AMINOTRANSFERASE 26 IU/L (10-42); BILIRUBIN,TOTAL 0.7 mg/dL (0.2-1.0); BUN - BLOOD UREA NITROGEN 16 mg/dL (6-20); CALCIUM 9.4 mg/dL (8.5-10.3); CARBON DIOXIDE - CO2 27 mmol/L (21-32); CHLORIDE 99 mmol/L (101-111); CHOL/HDL RATIO 3.5 (<4.4); CHOLESTEROL 173 mg/dL; GFR - MDRD 53 (>89); GLUCOSE 102 mg/dL (70-100); HDL CHOLESTEROL 50 mg/dL; LDL CHOLESTEROL,CALCULATED 103 mg/dL; LDL/HDL RATIO 2.1 (<4.4); SODIUM 137 mmol/L (135-145); TOTAL PROTEIN 7.3 g/dL (6.7-8.2); TRIGLYCERIDES 98 mg/dL; VLDL CHOLESTEROL 20 mg/dL
[2021-01-16 13:55] LABS: THYROID STIMULATING HORMONE 1.98 uIU/mL (0.34-5.60)
[2021-01-16 14:01] LABS: FERRITIN 11.8 ng/mL (11.0-306.8)
== END 2021-01-16 23:59 | disposition home or self-care (01) ==
LOC: LAB.WCP 08:00
PROVIDERS: ATTEND Physician Assistant Medical
DX: R73.9 Hyperglycemia, unspecified (principal); E78.5 Hyperlipidemia, unspecified; D64.9 Anemia, unspecified; E03.9 Hypothyroidism, unspecified
CPT/HCPCS: 36415; 80053; 80061; 82728; 83721; 84443; 85025